=== PATIENT | female | born 1975 | race Two or more races ===

== ENCOUNTER → 2023-08-21 | Day surgery (SDC) | payer MEDICAID ==
[2023-08-19 11:58] LABS: Basophils # (auto) 0.1 10 ^3/uL (0-0.2); Basophils % (auto) 0.8 % (0.0-2.0); Eosinophils # (auto) 0.3 10 ^3/uL (0-0.8); Eosinophils % (auto) 3.2 % (0.0-7.0); Hematocrit 41.6 % (36.0-46.0); Hemoglobin 13.8 g/dL (12.2-16.2); Lymphocytes # (auto) 3.1 10 ^3/uL (0.4-5.4); Lymphocytes % (auto) 32.7 % (10.0-50.0); Mean Corpuscular Hemoglobin 28.1 pg (28.0-32.0); Mean Corpuscular Hgb Conc. 33.1 g/dL (32.0-36.0); Mean Corpuscular Volume 84.9 fL (80.0-100.0); Monocytes # (auto) 0.5 10 ^3/uL (0-1.3); Monocytes % (auto) 5.1 % (0.0-12.0); Neutrophils # (auto) 5.4 10 ^3/uL (1.6-8.6); Neutrophils % (auto) 58.2 % (37.0-80.0); Nucleated Red Blood Cells % 0.1 %; White Blood Cell 9.4 10^3/uL (4.4-10.8)
[2023-08-19 12:02] LABS: Urine Bacteria NONE SEEN /hpf (None Seen); Urine Blood Negative /uL (Negative); Urine Clarity Clear (Clear); Urine Protein, UAD Negative (Negative); Urine Specific Gravity 1.011 (1.001-1.035); Urine Urobilinogen Normal (Negative); Urine WBC <1 /hpf (0 - 5); Urine pH 5.5 (5.0-8.0)
[2023-08-19 12:05] LABS: Urine Color Straw (Yellow)
[2023-08-19 12:08] LABS: INR 0.92 (0.9-1.15); Partial Thromboplastin Time 29.7 SEC (24.5-34.5); Prothrombin Time 9.7 sec (9.3-11.8)
[2023-08-19 12:31] LABS: Alanine Aminotransferase 14 U/L (7-40); Albumin 4.5 g/dL (3.2-4.8); Alkaline Phosphatase 105 U/L (46-116); Anion Gap 6 (5-15); BUN/Creatinine Ratio 12.2 (10.0-20.0); Blood Urea Nitrogen 11 mg/dL (9-23); Calcium 9.6 mg/dL (8.5-10.1); Carbon Dioxide 29 mmol/L (20-30); Chloride 106 mmol/L (98-107); Glucose 76 mg/dL (74-106); Potassium 4.3 mmol/L (3.5-5.1); Sodium 141 mmol/L (136-145)
[2023-08-19 12:32] LABS: Aspartate Aminotransferase 18 U/L (13-40)
[2023-08-19 12:33] LABS: Bilirubin, Total 0.3 mg/dL (0.2-1.0); Total Protein 7.4 g/dL (5.7-8.2)
[~2023-08-21] VITALS: Ht 147.3 cm; Wt 61.2 kg
[~2023-08-21] MED LIST: ATOR10TA PO; CHOL500046 PO; CLOM25CA15 PO; CLON-1003 PO; DULA1INJ SC; FLUT1AER3 IN; FLUV100C2 OR; INSLISPI SC; INSU100I69 SC; LATA0.008 OP; LEV50T PO; LIDOCAINE VISCOUS 2% 15ML UD ONE; LISI20TA56 PO; MONT-8 OR; QUET50TA5 PO; SODIUM CHLORIDE LOCK 10 ML ONE
[2023-08-21 13:20] VITALS: O2SAT 98
[2023-08-21] MEDS: fentaNYL CITRATE 100 MCG/2 ML VL ONE ×2 (13:26→13:29)
[2023-08-21] MEDS: diphenhdrAMINE HCL 50 MG/1 ML VL ONE ×2 (13:26→13:27)
[2023-08-21] MEDS: MIDAZOLAM HCL 5 MG/ML-1ML VIAL ONE ×2 (13:26→13:29)
[2023-08-21 13:36] VITALS: PULSE 87; RESP 16; TEMP 97.6; O2SAT 93
[2023-08-21 14:15] VITALS: BP 118/74; PULSE 89; RESP 22; O2SAT 95
== END | disposition home or self-care (01) ==
LOC: GI 11:50
PROVIDERS: ATTEND Internal Medicine Gastroenterology
DX: R11.2 Nausea with vomiting, unspecified (principal); R19.7 Diarrhea, unspecified; K29.90 Gastroduodenitis, unspecified, without bleeding; E11.9 Type 2 diabetes mellitus without complications; Z79.84 Long term (current) use of oral hypoglycemic drugs
CPT/HCPCS: 36415; 43239; 80053; 81001; 81025; 82962; 85025; 85610; 85730; J1200; J2250; J3010; J7030

== ENCOUNTER 2024-02-07 10:44 | Day surgery (SDC) | payer MEDICAID ==
[2024-01-31 15:47] LABS: Basophils # (auto) 0.1 10 ^3/uL (0-0.2); Basophils % (auto) 0.9 % (0.0-2.0); Eosinophils # (auto) 0.2 10 ^3/uL (0-0.8); Hematocrit 41.3 % (36.0-46.0); Hemoglobin 13.4 g/dL (12.2-16.2); Lymphocytes # (auto) 3.6 10 ^3/uL (0.4-5.4); Mean Corpuscular Hgb Conc. 32.5 g/dL (32.0-36.0); Mean Corpuscular Volume 83.2 fL (80.0-100.0); Monocytes # (auto) 0.4 10 ^3/uL (0-1.3); Monocytes % (auto) 5.1 % (0.0-12.0); Neutrophils # (auto) 3.9 10 ^3/uL (1.6-8.6); Nucleated Red Blood Cells % 0.1 %; Red Blood Cells 4.97 10^6/uL (4.0-5.20); Red Cell Distribution Width 15.3 % (11.8-14.3); White Blood Cell 8.2 10^3/uL (4.4-10.8)
[2024-01-31 16:09] LABS: Alanine Aminotransferase 22 U/L (7-40); Albumin 4.5 g/dL (3.2-4.8); Alkaline Phosphatase 89 U/L (46-116); Anion Gap 9 (5-15); Aspartate Aminotransferase 23 U/L (13-40); Bilirubin, Total 0.6 mg/dL (0.2-1.0); Calcium 9.7 mg/dL (8.5-10.1); Carbon Dioxide 25 mmol/L (20-30); Chloride 109 mmol/L (98-107); Glucose 84 mg/dL (74-106); Potassium 3.1 mmol/L (3.5-5.1); Sodium 143 mmol/L (136-145)
[2024-01-31 16:12] LABS: BUN/Creatinine Ratio 6.2 (10.0-20.0); Blood Urea Nitrogen < 5 mg/dL (9-23)
[2024-01-31 16:25] LABS: INR 0.99 (0.9-1.15); Partial Thromboplastin Time 29.9 SEC (24.5-34.5); Prothrombin Time 10.4 sec (9.3-11.8)
[~2024-02-07] VITALS: Ht 147.3 cm; Wt 61.2 kg
[~2024-02-07 10:44] MED LIST changes: +BRIM0.2S17 EACHEYE; -CLOM25CA15 PO; -FLUV100C2 OR; +GABA-339 PO; -LIDOCAINE VISCOUS 2% 15ML UD ONE; -SODIUM CHLORIDE LOCK 10 ML ONE; +VORT10TA PO
[2024-02-07 12:43] VITALS: PULSE 81; RESP 13; O2SAT 100
[2024-02-07] MEDS: diphenhdrAMINE HCL 50 MG/1 ML VL ONE (12:49)
[2024-02-07] MEDS: fentaNYL CITRATE 100 MCG/2 ML VL ONE ×2 (12:49→13:04)
[2024-02-07] MEDS: MIDAZOLAM HCL 5 MG/ML-1ML VIAL ONE (12:49)
[2024-02-07 13:26] VITALS: TEMP 98.1; O2SAT 100
[2024-02-07 14:10] VITALS: BP 123/75; PULSE 72; RESP 16; O2SAT 96
== END 2024-02-07 14:20 | disposition home or self-care (01) ==
LOC: GI 10:44
PROVIDERS: ATTEND Internal Medicine Gastroenterology
DX: R10.9 Unspecified abdominal pain (principal); D12.5 Benign neoplasm of sigmoid colon; K63.89 Other specified diseases of intestine; I10 Essential (primary) hypertension; E03.9 Hypothyroidism, unspecified; J45.909 Unspecified asthma, uncomplicated; E78.5 Hyperlipidemia, unspecified; E11.39 Type 2 diabetes mellitus with other diabetic ophthalmic complication; F41.9 Anxiety disorder, unspecified; F43.10 Post-traumatic stress disorder, unspecified; Z86.2 Personal history of diseases of the blood and blood-forming organs and certain disorders involving the immune mechanism; Z98.51 Tubal ligation status; Z90.49 Acquired absence of other specified parts of digestive tract; Z79.899 Other long term (current) drug therapy; Z90.710 Acquired absence of both cervix and uterus; Z87.891 Personal history of nicotine dependence; Z98.890 Other specified postprocedural states
CPT/HCPCS: 36415; 45385; 80053; 81025; 82962; 84702; 85025; 85610; 85730; 88305; J1200; J2250; J3010; J7030; 99152; 99153